=== PATIENT | male | born 1985 | race Two or more races ===

== ENCOUNTER → 2017-04-20 | Outpatient (CLI) | payer BC ==
--- NOTE | 2017-04-20 13:41 | REP ---
Clinical: Trauma. Technique: Frontal view of the chest with multiple views of the left hemithorax. Findings: Multiple views of the left hemithorax demonstrates a nondisplaced fracture along the anterior margin of the left seventh rib. Frontal view of the chest is unremarkable and without obvious contusion, effusion, or pneumothorax. Impression: Nondisplaced anterior left seventh rib fracture. Signed by Kirit Fragoso MD 04/20/2017 01:33 P
== END ==
LOC: M LRY 12:57
PROVIDERS: ATTEND Physician Assistant
DX: S22.32XA Fracture of one rib, left side, initial encounter for closed fracture (principal); X58.XXXA Exposure to other specified factors, initial encounter; Y93.9 Activity, unspecified; Y92.9 Unspecified place or not applicable; Y99.8 Other external cause status